=== PATIENT | male | born 1965 | race Caucasian/White ===

== ENCOUNTER 2019-08-15 14:57 | Inpatient (IN) | payer BC ==
[2019-08-15] MEDS ORDERED: LEVALBUTEROL 1.25 MG/3 ML NEB ONE (15:06)
[2019-08-15] MEDS ORDERED: NA CHLORIDE 0.9% 1,000 ML ONE ×2 (15:06→16:50)
[2019-08-15] MEDS ORDERED: ONDANSETRON 4 MG/2 ML VIAL ONE ×2 (15:15→20:33)
[2019-08-15 15:38] LABS: Absolute Lymphocytes (CBC) 8.9 K/uL (0.7-4.9); Basophils % 0.4 % (0-1.3); Hematocrit 54.2 % (39.6-49.0); Lymphocytes % 59.7 % (15.3-44.8); MPV 11.4 fL (7.6-11.3)
[2019-08-15 15:41] LABS: Protime INR 1.05
[2019-08-15 16:14] LABS: Blood Morphology Comment NOTED (NOT SEEN); Macrocytosis 1+; Platelet Estimate ADEQ; Polychromasia SLIGHT
[2019-08-15 16:19] LABS: BUN Blood Urea Nitrogen 16 mg/dL (7-18); Creatine Phosphokinase 195 U/L (39-308); Glucose Level 131 mg/dL (74-106); NT PRO-BNP 53 pg/mL (<125); Potassium 4.1 mmol/L (3.5-5.1); Sodium Level 148 mmol/L (136-145); Troponin (Emerg Dept Use Only) < 0.02 ng/mL (0.0-0.045)
[2019-08-15 16:29] LABS: Bicarbonate 3 mmol/L (21-32)
[2019-08-15 16:37] LABS: Arterial Blood Carboxyhemoglob 1.1 % (0-1.5); Blood Gas Oxyhemoglobin 91.6 % (94-97)
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
[2019-08-15 17:14] LABS: Potassium 4.4 mmol/L (3.5-5.1)
--- NOTE | 2019-08-15 18:36 | RAD REPORT ---
EXAM DESCRIPTION: Stella Single View08/15/2019 3:23 pm CLINICAL HISTORY: sob COMPARISON: none FINDINGS: The lungs appear clear of acute infiltrate. The heart is normal size IMPRESSION: No acute abnormalities displayed
[2019-08-15] MEDS ORDERED: MORPHINE 2 MG/ML SYR ONE (20:33)
[2019-08-15] MEDS ORDERED: IPRATROPIUM BROM 0.5MG/2.5ML NEB PRN (21:24)
[2019-08-15] MEDS ORDERED: ALBUTEROL 2.5 MG/3 ML NEB SOL NEB PRN (21:24)
[2019-08-15] MEDS ORDERED: ONDANSETRON 4 MG/2 ML VIAL IV PRN (21:24)
[2019-08-15] MEDS: FAMOTIDINE 20 MG/2 ML VIAL IV SCH (21:24)
[2019-08-15] MEDS: D5W 1,000 ML with NA BICARB 8.4% 100 MEQ IV SCH ×2 (21:24)
[2019-08-15] MEDS ORDERED: D5W 1,000 ML IV ONE (21:53)
[2019-08-15] MEDS: ACETAMINOPHEN 500 MG TAB PO PRN (22:05)
[2019-08-15 22:06] LABS: Arterial Blood Carboxyhemoglob 1.1 % (0-1.5); Blood Gas Oxyhemoglobin 94.6 % (94-97)
[2019-08-15] MEDS: MORPHINE 2 MG/ML SYR IV PRN (22:06)
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
[2019-08-16] MEDS: MORPHINE 2 MG/ML SYR IV PRN ×4 (05:02→20:15)
[2019-08-16] MEDS ORDERED: MORPHINE 2 MG/ML SYR ONE (05:03)
[2019-08-16 05:23] LABS: Absolute Lymphocytes (CBC) 1.2 K/uL (0.7-4.9); Basophils % 0.3 % (0-1.3); Hematocrit 41.7 % (39.6-49.0); Lymphocytes % 14.8 % (15.3-44.8); MPV 9.7 fL (7.6-11.3); RBC Red Blood Cell Count 3.97 M/uL (4.33-5.43)
[2019-08-16 05:25] LABS: Potassium 3.3 mmol/L (3.5-5.1)
--- NOTE | 2019-08-16 06:16 | EKG ---
Test Date: 2019-08-15 Test Time: 15:02:22 Reimbursement Manager: MEASUREMENT RESULTS: Intervals: Rate: 113 IA: 154 QRSD: 94 QT: 366 QTc: 502 [place]: P: 59 IA: 154 QRS: 23 T: 80 INTERPRETIVE STATEMENTS: Sinus tachycardia Abnormal ECG No previous ECG available for comparison Electronically Signed On 08-16-19 06:15:23 CDT by Alvarado Pal
[2019-08-16 07:43] LABS: Blood Morphology Comment NOT SEEN (NOT SEEN); Platelet Estimate DECR; Urine White Blood Cell Casts OK
[2019-08-16] MEDS ORDERED: INFLUENZA VACCINE (for 3y+) 0.5 ML DOSE IMVAC ONE (08:00)
[2019-08-16] MEDS: D5W 1,000 ML with NA BICARB 8.4% 100 MEQ IV SCH ×2 (08:24)
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
[2019-08-16] MEDS ORDERED: POTASSIUM CL SA 10 MEQ TAB PO ONE (09:09)
[2019-08-16] MEDS: FAMOTIDINE 20 MG/2 ML VIAL IV SCH (09:18)
[2019-08-16] MEDS: NA CHLORIDE 0.9% 1,000 ML IV SCH ×2 (10:10→22:30)
[2019-08-16] MEDS ORDERED: CALCIUM GLUC 10% INJ 9.3 MEQ in NA CHLORIDE 0.9% 100 ML IV ONE (10:22)
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
[2019-08-16 14:16] LABS: Barbiturates NEGATIVE (NEGATIVE); Benzodiazepines NEGATIVE (NEGATIVE); Cocaine NEGATIVE (NEGATIVE); METHAMPHETAM NEGATIVE (NEGATIVE); Methadone NEGATIVE (NEGATIVE); Opiates NEGATIVE (NEGATIVE); Phencyclidine NEGATIVE (NEGATIVE); THC Cannibis NEGATIVE (NEGATIVE)
[2019-08-16 14:29] LABS: Urine Appearance CLEAR; Urine Bilirubin NEGATIVE (NEG); Urine Blood NEGATIVE (NEG); Urine Color YELLOW; Urine Glucose NEGATIVE (NEG); Urine Microscopic Reflex NO UMIC; Urine Protein NEGATIVE (NEG); Urine Specific Gravity <=1.005 (1.005-1.030); Urine Urobilinogen 0.2 mg/dL (0.2-1.0)
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
[2019-08-16] MEDS: ZOLPIDEM TARTRATE 10 MG TABLET PO PRN (22:30)
[2019-08-16] MEDS: APIXABAN 5 MG TABLET PO SCH (22:30)
[2019-08-17 06:06] LABS: Absolute Lymphocytes (CBC) 0.8 K/uL (0.7-4.9); Basophils % 0.6 % (0-1.3); Hematocrit 38.5 % (39.6-49.0); Lymphocytes % 12.9 % (15.3-44.8); MPV 10.4 fL (7.6-11.3); RBC Red Blood Cell Count 3.65 M/uL (4.33-5.43)
[2019-08-17 06:11] VITALS: BMI 25.4
[2019-08-17 06:14] LABS: Magnesium 2.6 mg/dL (1.8-2.4); Phosphorus 3.9 mg/dL (2.5-4.9); Potassium 4.1 mmol/L (3.5-5.1); Uric Acid 12.9 mg/dL (3.5-7.2)
[2019-08-17 06:48] LABS: Urine Protein/Creatinine Ratio 0.18 ratio (<0.15)
[2019-08-17 06:48] LABS: Anisocytosis 1+; Blood Morphology Comment NOTED (NOT SEEN); Macrocytosis 1+; Platelet Estimate DECR; Urine White Blood Cell Casts OK
[2019-08-17] MEDS: RANITIDINE 150 MG TABLET PO SCH (08:16)
[2019-08-17] MEDS: APIXABAN 5 MG TABLET PO SCH ×2 (08:18→21:01)
[2019-08-17] MEDS: NA CHLORIDE 0.9% 1,000 ML IV SCH ×2 (09:47→18:33)
--- NOTE | 2019-08-17 15:43 | RAD REPORT ---
EXAM DESCRIPTION: US - Abdomen Pelvis Scan US - 08/17/2019 10:07 am CLINICAL HISTORY: Acute kidney injury COMPARISON: None. TECHNIQUE: Sonographic evaluation of the kidneys was performed with measurements obtained and gross anatomic assessment performed. Doppler evaluation of the renal arteries, interlobar arteries and aort a performed. Waveforms and velocities were recorded. The renal artery ratios in resistive index megha ues were calculated. FINDINGS: Kidneys are normal size. Cortical thickness and echogenicity are normal. No hydronephrosis or suspicious renal mass. No urinary bladder wall thickening or mass identifiable. Renal vascular velocity values and waveform pattern show no suspicious findings. No suspicious resist nichole index value. Renal artery ratio values are 1.5 on the right and 1.6 on the left. IMPRESSION: Normal renal artery ratios. No sonographic findings of renal artery stenosis. No hydronephrosis or suspicious mass. Renal cortical thickness and echogenicity are normal.
[2019-08-17 16:41] LABS: Rheumatoid Factor NEG (NEG)
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
[2019-08-17] MEDS: MORPHINE 2 MG/ML SYR IV PRN (19:53)
[2019-08-17] MEDS: ZOLPIDEM TARTRATE 10 MG TABLET PO PRN (21:01)
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
[2019-08-18] MEDS: NA CHLORIDE 0.9% 1,000 ML IV SCH ×2 (04:45→12:00)
[2019-08-18 05:22] LABS: Absolute Lymphocytes (CBC) 1.2 K/uL (0.7-4.9); Basophils % 0.5 % (0-1.3); Hematocrit 37.3 % (39.6-49.0); MPV 10.6 fL (7.6-11.3); RBC Red Blood Cell Count 3.55 M/uL (4.33-5.43)
[2019-08-18 06:13] LABS: Albumin 2.9 g/dL (3.4-5.0); Bilirubin Total 1.9 mg/dL (0.2-1.0); Potassium 4.6 mmol/L (3.5-5.1); Protein, Total 5.6 g/dL (6.4-8.2)
[2019-08-18] MEDS: RANITIDINE 150 MG TABLET PO SCH (08:28)
[2019-08-18] MEDS: APIXABAN 5 MG TABLET PO SCH ×2 (08:28→20:34)
[2019-08-18] MEDS: MORPHINE 2 MG/ML SYR IV PRN ×2 (09:50→16:06)
[2019-08-18] MEDS: LABETALOL 20 MG/4ML SYRINGE IV PRN (11:01)
[2019-08-18] MEDS ORDERED: NA CHLORIDE 0.9% 1,000 ML IV SCH (14:00)
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
--- NOTE | 2019-08-18 16:05 | RAD REPORT ---
EXAM DESCRIPTION: US - Liver Only - 08/18/2019 3:50 pm CLINICAL HISTORY: Abnormal liver function, abnormal bilirubin, thrombocytopenia COMPARISON: None. TECHNIQUE: Sonographic evaluation of the right upper quadrant was performed as a dedicated liver ult rasound study. FINDINGS: The liver is 15 cm in maximum dimension. No nodularity of the liver capsule. In the left l obe there is a 4.4 x 3.0 x 2.4 centimeter homogeneous echogenic mass. Margins are fairly well demarca luisa against the adjacent parenchyma. Findings are most consistent with an incidental hemangioma. No o ther liver parenchymal lesions seen. Doppler evaluation shows normal velocity, flow direction and wav eform pattern in the portal vein. No biliary tree dilatation seen. Spleen is 11-12 cm in maximum dimension, normal range, with no focal splenic lesions seen. No adjacen t mass or lymphadenopathy. No ascites or abnormal vasculature in the upper abdomen. IMPRESSION: Normal size liver and spleen. No ascites or lymphadenopathy. A 4.4 centimeter echogenic mass in the left lobe of the liver is most likely a meningioma. This is no t seen as an aggressive or emergent finding. Comparison can be made with any prior outside imaging. Follow-up contrast-enhanced CT imaging or MR i maging could be performed on an outpatient basis if the patient has no prior imaging for comparison.
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
[2019-08-18] MEDS: ZOLPIDEM TARTRATE 10 MG TABLET PO PRN (20:33)
[2019-08-19 06:33] LABS: Basophils % 0.6 % (0-1.3); Hematocrit 39.2 % (39.6-49.0); Lymphocytes % 24.8 % (15.3-44.8); MPV 10.2 fL (7.6-11.3); RBC Red Blood Cell Count 3.75 M/uL (4.33-5.43)
[2019-08-19 06:38] LABS: Albumin 3.3 g/dL (3.4-5.0); Phosphorus 4.1 mg/dL (2.5-4.9); Potassium 4.3 mmol/L (3.5-5.1)
[2019-08-19 06:57] LABS: CKMB Creatine Kinase MB < 1.0 ng/mL (0.3-3.6)
[2019-08-19 07:07] LABS: Creatine Phosphokinase 2523 U/L (39-308)
[2019-08-19] MEDS: AMLODIPINE 10 MG TAB PO SCH (09:00)
[2019-08-19] MEDS: RANITIDINE 150 MG TABLET PO SCH (09:00)
[2019-08-19] MEDS: APIXABAN 5 MG TABLET PO SCH ×2 (09:00→19:57)
[2019-08-19 10:48] LABS: Albumin 3.3 g/dL (3.4-5.0); Bilirubin Direct 0.4 mg/dL (0-0.2); Protein, Total 6.4 g/dL (6.4-8.2)
[2019-08-19 11:43] LABS: Urine Appearance CLEAR; Urine Bilirubin NEGATIVE (NEG); Urine Blood NEGATIVE (NEG); Urine Color YELLOW; Urine Glucose NEGATIVE (NEG); Urine Protein NEGATIVE (NEG); Urine Specific Gravity <=1.005 (1.005-1.030)
[2019-08-19 11:58] LABS: Urine Microscopic Reflex NO UMIC
[2019-08-19] MEDS: LABETALOL 20 MG/4ML SYRINGE IV PRN (12:47)
[2019-08-19] MEDS ORDERED: NA CHLORIDE 0.9% 1,000 ML IV SCH (14:00)
[2019-08-19] MEDS: HYDRALAZINE HCL 25 MG TABLET PO SCH ×2 (14:27→19:57)
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
[2019-08-19] MEDS: NA CHLORIDE 0.9% 1,000 ML IV SCH (16:32)
[2019-08-19] MEDS: ACETAMINOPHEN 500 MG TAB PO PRN (18:05)
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
[2019-08-19] MEDS: ZOLPIDEM TARTRATE 10 MG TABLET PO PRN (19:57)
[2019-08-19 21:34] VITALS: O2SAT 95
[2019-08-20] MEDS: NA CHLORIDE 0.9% 1,000 ML IV SCH (00:01)
[2019-08-20] MEDS: ACETAMINOPHEN 500 MG TAB PO PRN (04:31)
[2019-08-20 06:29] LABS: Albumin 3.2 g/dL (3.4-5.0); Phosphorus 3.2 mg/dL (2.5-4.9); Potassium 4.5 mmol/L (3.5-5.1)
[2019-08-20] MEDS: APIXABAN 5 MG TABLET PO SCH (08:45)
[2019-08-20] MEDS: RANITIDINE 150 MG TABLET PO SCH (08:45)
[2019-08-20] MEDS: AMLODIPINE 10 MG TAB PO SCH (08:46)
[2019-08-20] MEDS: HYDRALAZINE HCL 25 MG TABLET PO SCH (08:46)
[2019-08-20 08:47] VITALS: BP 144/84
[2019-08-20 09:03] VITALS: TEMP 97.6
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
--- NOTE | 2019-08-20 13:18 | PN ---
Date of Progress Note: 08/20/2019 Subjective: Patient was admitted with rhabdomyolysis, acute kidney injury secondary to rhabdo and for perfusion acute tubular necrosis. Patient recovering. Physical Examination: Vital Signs: Blood pressure 144/84, pulse of 56, afebrile. Patient had good urine output. Chest: Clear to auscultation. Heart: S1, S2. Regular. Abdomen: Soft. Nontender. Extremities: No edema. Laboratory Data: H and H 14.3/39.2, platelets of 99. Sodium 143, potassium 4.5 , bicarb 28, BUN 15, creatinine 1.6, trending down. GFR up to 44, calcium 8.4. CK is 1686. Current Medications: The patient on include IV fluids, Eliquis, Zofran, Ambien. Assessment And Plan: 1. Acute kidney injury secondary to poor perfusion, ATN, rhabdomyolysis, recover, trending down. Discharge IV fluid. Patient will be okay for discharge planning. 2. Rhabdomyolysis secondary to near drawning recovering will d/c IV fluid 3. Hypoperfusion, recovering. 4. Kidney function improving. Okay to discontinue IV fluid and discharged home. 5. Polycythemia vera. 6. Thrombocytopenia. 7. Follow up as outpatient. 8. Hypertension controlled, optimal, continue to monitor. SHILPA Voice ID: [id number] Report ID: [id number]
[2019-08-20 15:11] LABS: HIV AG/AB 4TH GEN Non-reactive (Non-reactive)
[2019-08-21 04:38] LABS: HBsAG Nonreactive (Nonreactive)
[2019-08-21 05:16] LABS: Albumin, (SPE) 2.9 g/dL (3.8-4.8); Alpha-1-Globulins 0.3 g/dL (0.2-0.3); Alpha-2-Globulins 0.5 g/dL (0.5-0.9); Gamma Globulins 0.5 g/dL (0.8-1.7); INTERPRETATION REPORT
== END 2019-08-20 10:40 | disposition home or self-care (01) | DRG 640 ==
LOC: ER 14:57 → ERHOLD 17:30 → 2ND 08-16 07:16
PROVIDERS: ADMIT Family Medicine; ATTEND Internal Medicine
DX: E87.2 Acidosis (principal); N17.0 Acute kidney failure with tubular necrosis; T75.1XXA Unspecified effects of drowning and nonfatal submersion, initial encounter; M62.82 Rhabdomyolysis; N17.9 Acute kidney failure, unspecified; E87.1 Hypo-osmolality and hyponatremia; I10 Essential (primary) hypertension; D75.1 Secondary polycythemia; D72.825 Bandemia; E83.42 Hypomagnesemia; D69.6 Thrombocytopenia, unspecified; R82.2 Biliuria; F10.10 Alcohol abuse, uncomplicated; Y90.0 Blood alcohol level of less than 20 mg/100 ml; E87.6 Hypokalemia; F17.210 Nicotine dependence, cigarettes, uncomplicated; Y93.11 Activity, swimming; Y92.832 Beach as the place of occurrence of the external cause; Y99.8 Other external cause status; Z79.01 Long term (current) use of anticoagulants
CPT/HCPCS: 36415; 71045; 76705; 76770; 80048; 80053; 80069; 80076; 80307; 80320; 81003; 82550; 82553; 82570; 82805; 83520; 83605; 83615; 83735; 83880; 83970; 84100; 84156; 84165; 84484; 84550; 85025; 85610; 85730; 86021; 86038; 86160; 86317; 86334; 86430; 86705; 86706; 86803; 87340; 87389; 93005; 93975; 96361; 96374; 96375; 99285; J0610; J2270; J2405; J7030